=== PATIENT | female | born 1965 | race Caucasian/White ===

== ENCOUNTER 2022-02-09 21:02 | Inpatient (IN) | payer MEDICARE, MEDICAID ==
[2022-02-09] MEDS ORDERED: MAG HYDROX/AL HYDROX/SIMETH 30 ML CUP PO PRN (22:29)
[2022-02-09] MEDS ORDERED: ACETAMINOPHEN TAB 325 MG TAB PO PRN (22:29)
[2022-02-09] MEDS ORDERED: HALOPERIDOL LACTATE 5 MG/ML 1 ML VIAL IM PRN (22:29)
[2022-02-09] MEDS ORDERED: MAGNESIUM HYDROXIDE 2,400 MG/10 ML CUP PO PRN (22:29)
[2022-02-09] MEDS ORDERED: haloperidoL 5 MG TAB PO PRN (22:31)
[2022-02-09] MEDS ORDERED: LORazepam 2 MG/ML INJ IM PRN (22:31)
[2022-02-10] MEDS: DULoxetine HCL 30 MG CAPSULE.DR PO SCH ×2 (08:54→20:30)
[2022-02-10] MEDS: METOPROLOL TARTRATE 50 MG TAB PO SCH ×2 (08:54→20:30)
[2022-02-10] MEDS: NICOTINE 14MG/24HR PATCH TRANSDERM SCH (08:55)
[2022-02-10] MEDS ORDERED: risperiDONE 1 MG TAB PO STA (10:53)
--- NOTE | 2022-02-10 13:26 | P.HP ---
Psychiatric H&P - . H&P Date: 02/10/22 History & Physical: Allergies Allergy/AdvReac Type Severity Reaction Status Date / Time No Known Allergies Allergy Verified 02/09/22 22:26 Vital Signs Temp 97.7 F 02/10/22 06:44 Pulse 83 02/10/22 08:58 Resp 16 02/09/22 22:51 BP 99/65 02/10/22 08:58 Pulse Ox FiO2 Intake & Output 02/09/22 02/10/22 02/10/22 18:59 06:59 18:59 Weight 86.36 kg Laboratory Last Values Estimated Ave Glu mg/dL 122 02/10/22 06:00 Hemoglobin A1c 5.9 % (0.0-6.0) 02/10/22 06:00 TSH 2.580 mIU/L (0.465-4.680) 02/10/22 06:00 02/10/22 13:25 IDENTIFYING DATA: Patient is a single, on disability, 57-year-old - Samoan female with significant history of schizophrenia who presented to the hospital from [facility] on a berry picker order for bizarre and agitated behaviors. HPI: Patient presented to the hospital on 02/10/2022, brought in under petition and certification for a mental health evaluation after presenting with psychotic symptoms and agitated behavior. The initial petition was filled out by the patient's daughter reported that the patient has been hearing voices, speaking with herself, making threats, and often walking all night. Reportedly, the patient has been nonadherent with her medications and her outpatient appointments. She was subsequently certified and transferred to our psychiatric unit. Upon evaluation on our psychiatric unit, the patient continues to endorse auditory hallucinations and bizarre delusions. She does express concerns that she has been getting special messages through the television and this has been going on for at least 30 years. She states that she suspects "Les Rodrigez is the one behind this because Les Rodrigez wants to be her friend." The patient does endorse auditory hallucinations. She is currently denying any visual hallucinations. She reports no suicidal or homicidal ideation, intention, and/or plan. Although she has a history of aggression and profanities, the p atient denies any current symptoms of juan josé or irritability. She denies any racing thoughts, mood lability, or periods of excessive energy. She is currently not reporting any depressive symptoms at this time. She reports no issues regarding her sleep or her appetite. She denies any prior attempts at suicide. PAST PSYCHIATRIC HISTORY: Patient states that she has depression and anxiety. She recalls only being prescribed Cymbalta and Risperdal in the past. She reports 5 inpatient psychiatric hospitalizations. She reports that she follows with [facility] however it is reported that she is nonadherent with treatment. Patient denies any history of suicide attempts in the past. PMH: Hyperlipidemia ALLERGIES: NO KNOWN DRUG ALLERGIES CHEMICAL DEPENDENCY HISTORY: The patient reports smoking 4-5 cigarettes per day. She denies any marijuana use. She reports 1-2 beers "every now and then." She denies any drug use. FAMILY PSYCHIATRIC/SUBSTANCE USE HISTORY: No reported family history. SOCIAL HISTORY: Patient was born and raised in [place]. She lives with her daughter. She is currently single, receives Social Security disability. She identifies as Orthodoxy. She reports no legal issues or concerns. MENTAL STATUS EXAM: General Appearance: Patient appears to be stated age is alert, directable, and attempts to cooperate. Patient appears to have fair hygiene and grooming. Patient is wearing broken glasses. Behavior: Patient is seated without any agitated behavior. Eye contact is appropriate. Psychomotor activity slightly elevated. Speech: Patient's speech is fluent and nonpressured. Mood/Affect: Patient reports their mood is doing okay, affect is congruent and constricted. Suicidality/Homicidality: Patient denies any suicidal or homicidal ideation. Perceptions: Patient denies any visual hallucinations but the patient endorses auditory hallucinations. Though content/process: The patient reports ideas of reference, paranoid delusions, grandiose delusions, and flight of ideas. Memory and concentration: AOX3, grossly intact for the purposes of this session. Can spell "WORLD" backwards Judgment and insight: poor STRENGTHS/WEAKNESSES: Strength is that the patient has a supportive family. Weakness is that the patient is nonadherent with treatment and has severe mental illness. INTELLECT: average IMPRESSIONS: Schizophrenia Tobacco use disorder PLAN: -Patient is admitted under voluntary status to MHU for stabilization of psychiatric symptoms and safety. Patient signed adult voluntary form and medication consent and is placed in patient's chart. -Medications : Will start patient on Risperdal 1 mg by mouth twice a day for psychosis/mood stabilization with plans to transition to Invega Sustenna or Risperdal Consta prior to discharge. Cymbalta 30 mg by mouth twice a day for depression/anxiety -Ativan and Haldol PRN for agitation/aggression -Patient was counselled on substance abuse and desired to cut back on use -Patient was informed of the risks, benefits and side effects of the medication and patient verbally consented to taking the medications. Patient signed med consent form and was placed in chart. -Internal Medicine consult to perform medical evaluation and physical. -NRT - nicotine patch -SW on board for discharge planning. Encourage patient to participate in groups to work on coping skills. 02/10/22 13:26
[2022-02-10 14:40] LABS: Chol/HDL Ratio 2.65 Ratio; LDL Cholesterol,Calculated 57.2 mg/dL (0.0-131.0); VLDL Calculation 15.14 mg/dL (5.00-40.00)
[2022-02-10] MEDS: risperiDONE 1 MG TAB PO SCH (20:30)
[2022-02-10] MEDS: ATORVASTATIN 40 MG TAB PO SCH (20:30)
--- NOTE | 2022-02-11 04:40 | P.CONS ---
History of Present Illness - Reason for Consult Consult date: 02/11/22 - History of Present Illness The patient is a 57-year-old female with a PMH of hyperlipidemia who was sent from [facility] where she had presented for bizarre behavior. The patient was seen in the mental health unit. She reported feeling better after being admitted to the hospital. She denied any physical complaints at the time of interview. She reports compliance with her medications at home. Denied experiencing cough, fever, chills, chest pain, shortness of breath, nausea, vomiting, abdominal pain, diarrhea. Laboratory evaluation was reviewed. Review of systems: Pertinent positives and negatives as discussed in HPI, a complete review of systems was performed and all other systems are negative. Physical examination: General: non toxic, no distress, appears at stated age, normal weight Derm: no unusual rashes/lesions no unusual ecchymoses, warm, dry Head: atraumatic, normocephalic, symmetric Eyes: EOMI, no lid lag, anicteric sclera, pupils equal round reactive to light ENT: Nose and ears atraumatic, no thrush, no pharyngeal erythema Neck: No thyromegaly, no cervical lymphadenopathy, trachea midline, supple Mouth: no lip lesion, mucus membranes moist Cardiovascular: S1S2 reg, no murmur, positive posterior tibial pulse bilateral, no edema, capillary refill less than 2 seconds Lungs: CTA bilateral, no rhonchi, no rales , no accessory muscle use Abdominal: soft, nontender to palpation, no guarding, no appreciable organomegaly, normal bowel sounds Ext: no gross muscle atrophy, muscle strength 5 out of 5 in all 4 extremities grossly, no contractures, Neuro: CN II-XI grossly intact, light touch intact all 4 extremities, finger to nose within normal limits, Psych: Alert, oriented, appropriate affect Assessment/plan Hyperlipidemia -Continue with home meds Psychosis -As per psychiatry Thank you for allowing us to participate in the care of this patient. We will follow peripherally. Do not hesitate to contact us with questions. Someone can be reached from the [facility] hospitalist group at all hours of the day at [phone]. Past Medical History Past Medical History: Hypertension History of Any Multi-Drug Resistant Organisms: None Reported Past Surgical History: No Surgical Hx Reported Past Anesthesia/Blood Transfusion Reactions: No Reported Reaction Past Psychological History: No Psychological Hx Reported Smoking Status: Current every day smoker Past Drug Use History: None Reported - Past Family History Mother Family Medical History: Hypertension Medications and Allergies Home Medications Medication Instructions Recorded Confirmed Type Atorvastatin [Lipitor] 40 mg PO HS 02/09/22 02/09/22 History DULoxetine HCL [Cymbalta] 30 mg PO BID 02/09/22 02/09/22 History Metoprolol Tartrate [Lopressor] 50 mg PO BID 02/09/22 02/09/22 History Allergies Allergy/AdvReac Type Severity Reaction Status Date / Time No Known Allergies Allergy Verified 02/09/22 22:26 Physical Exam Vitals: Vital Signs Temp Pulse Resp BP BP Pulse Ox 02/11/22 03:46 94 18 102/56 97 02/10/22 20:32 55 L 107/59 02/10/22 08:58 83 99/65 02/10/22 06:44 97.7 F 81 133/67
[2022-02-11] MEDS: DULoxetine HCL 30 MG CAPSULE.DR PO SCH ×2 (09:27→21:15)
[2022-02-11] MEDS: LORazepam 1 MG TAB PO PRN (09:27)
[2022-02-11] MEDS: NICOTINE 14MG/24HR PATCH TRANSDERM SCH (09:27)
[2022-02-11] MEDS: METOPROLOL TARTRATE 50 MG TAB PO SCH ×2 (09:27→21:14)
[2022-02-11] MEDS: risperiDONE 1 MG TAB PO SCH (09:27)
--- NOTE | 2022-02-11 11:41 | P.PN ---
Progress Note - Text Progress Note Date: 02/11/22 Interval History: Patient was seen wandering the hallways and was directable and agreeable to speak with contract writer in the office. The patient reports that she is feeling better. However, the patient continues to endorse auditory hallucinations and ideas of reference. She was informed that she is being treated for schizophrenia and was surprised by the diagnosis. She displays very poor insight. She is however adherent with the medications and is not reporting any significant side effects at this time. She reports no suicidal or homicidal ideation,. At this time patient denies any suicidal or homical ideations, intent or plan. Patient denies any auditory, visual hallucinations and denies any paranoia or delusions. Patient denies any side effects from the medications and has been compliant with meds. Mental Status Exam: General Appearance: Patient appears to be stated age is alert, directable, and cooperative. Behavior: Patient is calmly seated without any agitated behavior. Speech: Patient's speech is fluent and nonpressured. Mood/Affect: Mood is improving mildly, affect is congruent and constricted. Suicidality/Homicidality: Patient denies having any suicidal or homicidal ideation intent or plan. Perceptions: Patient denies any visual hallucinations however endorses auditory hallucinations Though content/process: Patient endorses ideas of reference and paranoid delusions. Grandiose. Memory and concentration: AOX3, grossly intact for the purposes of this session Judgment and insight: Improving mildly Vital Signs Temp 98.8 F 02/11/22 09:28 Pulse 94 02/11/22 09:28 Resp 18 02/11/22 09:28 BP 154/68 02/11/22 09:28 Pulse Ox 97 02/11/22 03:46 FiO2 Laboratory Results - Last 24 Hours 02/10/22 06:00 Triglycerides 75.70 Cholesterol 116.00 LDL Cholesterol, Calc 57.2 VLDL Cholesterol, Calc 15.14 HDL Cholesterol 43.70 Cholesterol/HDL Ratio 2.65 Assessment Schizophrenia Tobacco use disorder Plan: -Patient continues to meet criteria for inpatient psychiatric admission for symptom stabilization and safety. Patient has signed adult voluntary form and medication consent and was placed in patient's chart. -Medications: Increase Risperdal to 2 mg by mouth twice a day for mood stabilization/psychosis. Plans to transition patient to Invega Sustenna or Risperdal Consta prior to discharge. Continue Cymbalta 30 mg by mouth twice a day for depression/anxiety -When necessary Ativan and Haldol for agitation/aggression. -NRT - nicotine patch -SW on board for discharge planning. Encouraged the patient to participate in milieu.
[2022-02-11] MEDS: risperiDONE 2 MG TAB PO SCH (21:15)
[2022-02-11] MEDS: ATORVASTATIN 40 MG TAB PO SCH (21:15)
[2022-02-12] MEDS: risperiDONE 2 MG TAB PO SCH (08:55)
[2022-02-12] MEDS: DULoxetine HCL 30 MG CAPSULE.DR PO SCH ×2 (08:55→20:37)
[2022-02-12] MEDS: METOPROLOL TARTRATE 50 MG TAB PO SCH (08:58)
[2022-02-12] MEDS ORDERED: PALIPERIDONE IM 234 MG/1.5 ML SYG IM STA (10:13)
--- NOTE | 2022-02-12 15:07 | P.PN ---
Progress Note - Text Progress Note Date: 02/12/22 Interval History: Patient was seen wandering the hallways and was directable and agreeable to speak with filing writer in the office. The patient continues to endorse significant improvement regards for mood and her target psychotic symptoms. She is currently denying any suicidal or homicidal ideation, intention, and/or plan. She is not reporting any auditory or visual hallucinations. She denies any paranoia or other delusions at this time. The patient is inquiring why she does not experience auditory hallucinations or ideas of reference while in the hospital but she expresses them at home. She was informed that she is typically nonadherent with her prescribed medications and that is why we are transitioning her to the long-acting injectable. Patient is agreeable at this time to the transition. Mental Status Exam: General Appearance: Patient appears to be stated age is alert, directable, and cooperative. Behavior: Patient is calmly seated without any agitated behavior. Speech: Patient's speech is fluent and nonpressured. Mood/Affect: Mood is improving mildly, affect is congruent and with more appropriate range Suicidality/Homicidality: Patient denies having any suicidal or homicidal ideation intent or plan. Perceptions: Patient denies any visual hallucinations or auditory hallucinations today Though content/process: Patient does not endorse any overt delusions at this time. Memory and concentration: AOX3, grossly intact for the purposes of this session Judgment and insight: Improving mildly Vital Signs Temp 98.4 F 02/12/22 06:40 Pulse 61 02/12/22 06:40 Resp 16 02/12/22 06:40 BP 99/57 02/12/22 06:40 Pulse Ox 99 02/12/22 06:40 FiO2 Laboratory Results Estimated Ave Glu mg/dL 122 02/10/22 06:00 Hemoglobin A1c 5.9 % (0.0-6.0) 02/10/22 06:00 Triglycerides 75.70 mg/dL (0.00-149.00) 02/10/22 06:00 Cholesterol 116.00 mg/dL (0.00-200.00) 02/10/22 06:00 LDL Cholesterol, Calc 57.2 mg/dL (0.0-131.0) 02/10/22 06:00 VLDL Cholesterol, Calc 15.14 mg/dL (5.00-40.00) 02/10/22 06:00 HDL Cholesterol 43.70 mg/dL (40.00-60.00) 02/10/22 06:00 Cholesterol/HDL Ratio 2.65 Ratio 02/10/22 06:00 TSH 2.580 mIU/L (0.465-4.680) 02/10/22 06:00 Allergies Allergy/AdvReac Type Severity Reaction Status Date / Time No Known Allergies Allergy Verified 02/09/22 22:26 Assessment Schizophrenia Tobacco use disorder Plan: -Patient continues to meet criteria for inpatient psychiatric admission for symptom stabilization and safety. Patient has signed adult voluntary form and medication consent and was placed in patient's chart. -Medications: Start Invega Sustenna or Risperdal Consta prior to discharge. Continue Cymbalta 30 mg by mouth twice a day for depression/anxiety -When necessary Ativan and Haldol for agitation/aggression. -NRT - nicotine patch -SW on board for discharge planning. Encouraged the patient to participate in milieu.
[2022-02-12] MEDS: NICOTINE GUM (POLACRILEX) 2 MG GUM BUCCAL PRN (19:22)
[2022-02-12] MEDS: METOPROLOL TARTRATE 25 MG TAB PO SCH (20:37)
[2022-02-12] MEDS: LORazepam 1 MG TAB PO PRN (20:37)
[2022-02-12] MEDS: ATORVASTATIN 40 MG TAB PO SCH (20:38)
[2022-02-12 20:42] VITALS: RESP 20
[2022-02-13] MEDS: METOPROLOL TARTRATE 25 MG TAB PO SCH ×2 (08:43→20:09)
[2022-02-13] MEDS: DULoxetine HCL 30 MG CAPSULE.DR PO SCH ×2 (08:43→20:09)
[2022-02-13] MEDS: NICOTINE GUM (POLACRILEX) 2 MG GUM BUCCAL PRN (13:36)
[2022-02-13] MEDS: LORazepam 1 MG TAB PO PRN (13:36)
--- NOTE | 2022-02-13 14:56 | P.PN ---
Progress Note - Text Progress Note Date: 02/13/22 Subjective: Patient was seen today as a cross coverage for Dr. Flores. The patient was evaluated, chart reviewed, case discussed with the treatment team. Patient reports good sleep last night, and appetite was reported as " fair". Patient has been going to some groups and other unit activities. The patient is compliant with her medications and denies any adverse reactions. Patient reports her mood is better and the current medications are working for her. She received first Invega SHARP yesterday and that works good. She denies any SEs. Denies any manic symptoms. Denies depression, hopelessness or suicidal thoughts. Objective: Vitals has been reviewed. Mental status examination; Appearance: The patient appears[], [] groomed, [] body built, no specific features. Gait/posture:[], Normal arm swinging: No abnormal movements. Attitude and behavior: [] engaged, [] cooperative, [] eye contact. Motor activity: [] psychomotor [] Speech:[] Mood:[] Affect:[] Thought form: [] goal-directed, linear, [] coherent. Thought content: Non-delusional, [] suicidal thoughts, denies homicidal thoughts, denies intentions or plans. Perception: [] any auditory or visual hallucinations Attention: No impairment. Patient was able to repeat serial 5. Orientation: Patient is oriented to time place person and situation. Insight: Patient has [] insight about [] psychiatric disorder. Judgment: Patient has [] judgment about [] psychiatric treatment. Assessment: Schizophrenia Tobacco use disorder Plan: Continue inpatient level of care due to patient still needs further monitoring and stabilization Precautions: Continue 15 minutes check for safety. Consider medical consultation if any acute medical issues arise. Provide the patient individual, group therapy, substance use disorder counseling to give better insight and learn coping skills. Medications: Invega Sustenna for psychotic symptoms. Cymbalta 30 mg by mouth twice a day for depression/anxiety NRT - nicotine patch When necessary Ativan and Haldol for agitation/aggression. Continue non-psychiatric medications for medical conditions as recommended by the medical team. Discharge patient to OUTPATIENT services upon a stabilization
--- NOTE | 2022-02-13 15:01 | P.PN ---
Progress Note - Text Progress Note Date: 02/13/22 [address] [place], [place] [address] Progress Note - Text Patient Name: Ramila Piña Date of : 1965 Patient Status: Inpatient Attending Provider: Jitendra Flores Date: 02/13/22 14:51 Initialization Date: 02/13/22 14:51 Progress Note - Text Progress Note Date: 02/13/22 Subjective: Patient was seen today as a cross coverage for Dr. Flores. The patient was evaluated, chart reviewed, case discussed with the treatment team. Patient reports good sleep last night, and appetite was reported as " fair". Patient has been going to some groups and other unit activities. The patient is compliant with her medications and denies any adverse reactions. Patient reports her mood is better and the current medications are working for her. She received first Invega SHARP yesterday and that works good. She denies any SEs. Denies any manic symptoms. Denies depression, hopelessness or suicidal thoughts. Objective: Vitals has been reviewed. Mental status examination; Appearance: The patient appears stated age, fairly groomed, average body built, no specific features. Gait/posture: Normal gait, normal arm was swinging, no abnormal movements. Attitude and behavior: Engaged, cooperative, fair eye contact. Motor activity: Normal psychomotor activity. Speech: Normal. Mood:" Fine". Affect: Restricted. Thought form: Goal-directed, linear, and coherent. Thought content: Nondelusional, denies suicidal thoughts, denies homicidal thoughts, denies intention or plans to hurt herself or others. Perception denies any auditory or visual hallucinations. Attention: No impairment. Orientation patient was oriented to time, place, person, and situation. Insight: Patient has fair insight about her psychiatric disorder. Judgment: Patient has fair judgment about her psychiatric treatment. Assessment: Schizophrenia Tobacco use disorder Plan: Continue inpatient level of care due to patient still needs further monitoring and stabilization Precautions: Continue 15 minutes check for safety. Consider medical consultation if any acute medical issues arise. Provide the patient individual, group therapy, substance use disorder counseling to give better insight and learn coping skills. Medications: Invega Sustenna for psychotic symptoms. Cymbalta 30 mg by mouth twice a day for depression/anxiety NRT - nicotine patch When necessary Ativan and Haldol for agitation/aggression. Continue non-psychiatric medications for medical conditions as recommended by the medical team. Discharge patient to OUTPATIENT services upon a stabilization
[2022-02-13] MEDS: ATORVASTATIN 40 MG TAB PO SCH (20:09)
[2022-02-14] MEDS: METOPROLOL TARTRATE 25 MG TAB PO SCH ×2 (08:37→20:11)
[2022-02-14] MEDS: DULoxetine HCL 30 MG CAPSULE.DR PO SCH ×2 (08:37→20:11)
--- NOTE | 2022-02-14 15:52 | P.PN ---
Progress Note - Text Progress Note Date: 02/14/22 Subjective: Patient was seen today as a cross coverage for Dr. Flores. The patient was evaluated, chart reviewed, case discussed with the treatment team. Patient continued to feel stable mentally and he denied any depression, hopelessness, or suicidal ideation. She denied any hallucinations, paranoid ideation, delusions, or manic symptoms. Patient requested discharge, and was educated to discuss her discharge plan with primary psychiatric team. Patient continued to take her psych medications and denies side effects, and to attend groups and other unit activities. Objective: Vitals has been reviewed. Mental status examination; Appearance: The patient appears stated age, fairly groomed, average body built, no specific features. Gait/posture: Normal gait, normal arm was swinging, no abnormal movements. Attitude and behavior: Engaged, cooperative, fair eye contact. Motor activity: Normal psychomotor activity. Speech: Normal. Mood:" Fine". Affect: Restricted. Thought form: Goal-directed, linear, and coherent. Thought content: Nondelusional, denies suicidal thoughts, denies homicidal thoughts, denies intention or plans to hurt herself or others. Perception denies any auditory or visual hallucinations. Attention: No impairment. Orientation patient was oriented to time, place, person, and situation. Insight: Patient has fair insight about her psychiatric disorder. Judgment: Patient has fair judgment about her psychiatric treatment. Assessment: Schizophrenia Tobacco use disorder Plan: Continue inpatient level of care due to patient still needs further monitoring and stabilization Precautions: Continue 15 minutes check for safety. Consider medical consultation if any acute medical issues arise. Provide the patient individual, group therapy, substance use disorder counseling to give better insight and learn coping skills. Medications: Invega Sustenna for psychotic symptoms. Cymbalta 30 mg by mouth twice a day for depression/anxiety NRT - nicotine patch When necessary Ativan and Haldol for agitation/aggression. Continue non-psychiatric medications for medical conditions as recommended by the medical team. Discharge patient to OUTPATIENT services upon a stabilization
[2022-02-14] MEDS: ATORVASTATIN 40 MG TAB PO SCH (20:11)
[2022-02-15 07:17] VITALS: BP 110/70; PULSE 58; TEMP 97.7
[2022-02-15] MEDS: DULoxetine HCL 30 MG CAPSULE.DR PO SCH (08:43)
[2022-02-15] MEDS: METOPROLOL TARTRATE 25 MG TAB PO SCH (08:43)
--- NOTE | 2022-02-15 11:35 | P.PN ---
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 Patient presented to the hospital on 02/10/2022, brought in under petition and certification for a mental health evaluation after presenting with psychotic symptoms and agitated behavior. The initial petition was filled out by the patient's daughter reported that the patient has been hearing voices, speaking with herself, making threats, and often walking all night. Reportedly, the patient has been nonadherent with her medications and her outpatient appointments. She was subsequently certified and transferred to our psychiatric unit. Upon evaluation on our psychiatric unit, the patient continues to endorse auditory hallucinations and bizarre delusions. She does express concerns that she has been getting special messages through the television and this has been going on for at least 30 years. She states that she suspects "Les Rodrigez is the one behind this because Les Rodrigez wants to be her friend." The patient does endorse auditory hallucinations. She is currently denying any visual hallucinations. She reports no suicidal or homicidal ideation, intention, and/or plan. Although she has a history of aggression and profanities, the patient denies any current symptoms of juan josé or irritability. She denies any racing thoughts, mood lability, or periods of excessive energy. She is currently not reporting any depressive symptoms at this time. She reports no issues regarding her sleep or her appetite. She denies any prior attempts at suicide. Patient states that she has depression and anxiety. She recalls only being prescribed Cymbalta and Risperdal in the past. She reports 5 inpatient psychiatric hospitalizations. She reports that she follows with [facility] however it is reported that she is nonadherent with treatment. Patient denies any history of suicide attempts in the past. Hospital course: Upon admission to the unit patient was initially presenting as pleasant however endorsing significant psychotic symptom reference, paranoia, and grandiose delusions. Patient was however directable and agreeable to commence treatment. Patient got along well with other patients on the unit and followed unit protocol. Patient was compliant with the medications and denied any side effects throughout hospital course. Patient was started on a regimen of Risperdal with plans to transition to Invega Sustenna as the patient has significant history of nonadherence with treatment. Patient spoke of her stressors and engaged in therapy both group and individual. Patient was also seen by medical team for history and physical exam. Collateral information was obtained by the patient's daughter as well confirm that the patient is not adherent with her treatment in the outpatient setting and was recommending a long-acting injectable medication as well. Over the course of the hospitalization, the patient displayed significant improvement with her regimen of Risperdal and Cymbalta. The patient reported feeling significantly better with the medication and endorsed a clear thought process and the decrease in her psychotic symptoms. She tolerated the medications well and was transition to [facility]. On the day of discharge, the patient is not reporting any suicidal or homicidal ideation, intention, and/or plan. She is not reporting any auditory or visual hallucinations. She denies any paranoia or other delusions. He denies access to firearms or other weapons. The patient does not have a significant history of substance abuse however was counseled great length on abstaining from all substances including alcohol and marijuana. Prior to discharge, family meeting will be arranged by social worker masters to answer questions and ensure safety. Mental status exam: General Appearance: Patient appears to be stated age is alert, pleasant, and cooperative. Patient is in no acute distress and has fair hygiene and grooming. Behavior: Patient is calmly seated without any agitated behavior. Speech: Patient's speech is fluent and nonpressured. Mood/Affect: Patient reports their mood is "feeling really good, I'm thankful", affect is congruent and euthymic to bright. Suicidality/Homicidality: Patient denies having any suicidal or homicidal ideation intent or plan. Perceptions: Patient denies any auditory or visual hallucinations. Though content/process: There is no evidence of any delusional thought content and thought process is linear and goal-directed. Patient is future oriented. Memory and concentration: AOX3, grossly intact for the purposes of this session. Can spell "WORLD" backwards correctly. Judgment and insight: Improved Vital Signs Temp 97.7 F 02/15/22 07:16 Pulse 58 L 02/15/22 07:16 Resp 20 02/13/22 20:07 BP 110/70 02/15/22 07:16 Pulse Ox 97 02/15/22 07:16 FiO2 Intake & Output 02/14/22 02/15/22 02/15/22 18:59 06:59 18:59 Weight 89.1 kg Laboratory Results Estimated Ave Glu mg/dL 122 02/10/22 06:00 Hemoglobin A1c 5.9 % (0.0-6.0) 02/10/22 06:00 Triglycerides 75.70 mg/dL (0.00-149.00) 02/10/22 06:00 Cholesterol 116.00 mg/dL (0.00-200.00) 02/10/22 06:00 LDL Cholesterol, Calc 57.2 mg/dL (0.0-131.0) 02/10/22 06:00 VLDL Cholesterol, Calc 15.14 mg/dL (5.00-40.00) 02/10/22 06:00 HDL Cholesterol 43.70 mg/dL (40.00-60.00) 02/10/22 06:00 Cholesterol/HDL Ratio 2.65 Ratio 02/10/22 06:00 TSH 2.580 mIU/L (0.465-4.680) 02/10/22 06:00 Allergies Allergy/AdvReac Type Severity Reaction Status Date / Time No Known Allergies Allergy Verified 02/09/22 22:26 Impression: Schizophrenia Tobacco use disorder Plan: -Continue with discharge today as patient has improved and stabilized psychiatrically and is not currently an imminent threat to self and/or others. Patient will remain at chronically elevated risk to her history of nonadherence treatment and the severity of her mental illness -Continue medications: Invega Sustenna 156 mg IM is due on 02/19/2022. First loading dose of 234 mg IM was administered on 02/12/2022. Cymbalta 30 mg by mouth twice a day for depression/anxiety -Patient was counseled on the need for medication compliance and appropriate follow-up at mental health and also primary care for medical issues. Patient verbalized understanding and agreed. -Social work to arrange for and conduct family meeting to ensure safety upon discharge and answer any questions/concerns. Social work also to arrange for patients follow up appointments with [facility] for psychiatric care along with follow up with primary care provider. -Patient counseled on abstaining from recreational drugs and marijuana and alcohol. Was informed/educated on the adverse effects on their physical and mental health. Patient verbally agreed and understood. -Patient was instructed to return to the hospital or seek immediate medical care if their psychiatric or medical symptoms do worsen or reoccur. -Psychoeducation and supportive therapy provided to patient. Risks and benefits of pharmacological treatment versus the risks and benefits of nontreatment weight and discussed. Informed consent discussion held. Common side effects of psychotropics discussed such as, but not limited to headache, GI disturbance, sexual dysfunction, movement disorders, sedation, and orthostatic hypotension. Life threatening and blackbox warnings of prescribed medications also discussed. Potential risks of operating a vehicle or heavy machinery discussed with patient at length. Advised on importance of compliance and a reliable and responsible manner. Patient advised to review FDA consumer labeling of all medications prior to taking. Patient verbalized understanding of potential risks, and agrees with current treatment plan. Patient advised to medically contact physician/emergency personnel if any acute changes in condition occur.
== END 2022-02-15 14:41 | disposition home or self-care (01) | DRG 885 ==
LOC: EEVIPCON → 3MHU 22:11
PROVIDERS: ADMIT Psychiatry & Neurology Psychiatry; ATTEND Psychiatry & Neurology Psychiatry
DX: F20.9 Schizophrenia, unspecified (principal); F32.A Depression, unspecified; F41.9 Anxiety disorder, unspecified; I10 Essential (primary) hypertension; R45.1 Restlessness and agitation; E78.5 Hyperlipidemia, unspecified; F17.210 Nicotine dependence, cigarettes, uncomplicated; Z79.899 Other long term (current) drug therapy; Z82.49 Family history of ischemic heart disease and other diseases of the circulatory system; Z28.310 Unvaccinated for COVID-19; Z28.21 Immunization not carried out because of patient refusal
CPT/HCPCS: 80061; 83036; 84443